=== PATIENT | female | born 1950 | race African-American/Black ===

== ENCOUNTER 2017-02-20 06:15 | Day surgery (SDC) | payer OTHER ==
--- NOTE | 2017-02-18 12:50 | HP ---
Past Medical History - Admission Chief Complaint: Thickened endometrium History of Present Illness: 66 year old who had a MRI ordered by Dr. Barahona, Oncology on 10/31/2016 revealing abnormality of the kidney and chest and a uterus with an endometrium measuring 1.4 cm in thickness. A transvaginal ultrasound was performed on revealing a anteverted uterus 7 by 5 by 4 cm with endometrium of 12 mm with differential including cystic endometrial hyperplasia and endometrial carcinoma could not be ruled out. Patient had been on Tamoxifen from 1996 to 2002. She denies postmenopausal bleeding. Negative pap smear and HPV 10/23/2016. History Source: Patient Limitations to Obtaining History: No Limitations - Past Medical History ...: 3 ...Para: 3 - Past Surgical History Past Surgical History: Yes: Breast Biopsy, Mastectomy (Right mastectomy 1996) Hx Myomectomy: No Hx Transabdominal Cerclage: No - Smoking History Smoking history: Never smoked - Alcohol/Substance Use Hx Alcohol Use: No - Social History Usual Living Arrangement: Yes: With Spouse Occupation: Registered nurse Home Medications - Allergies Allergies/Adverse Reactions: Allergies Allergy/AdvReac Type Severity Reaction Status Date / Time Latex, Natural Rubber Allergy Mild Verified 02/18/17 12:54 streptomycin Allergy Unknown Verified 02/18/17 12:54 Family Disease History - Family Disease History Family Disease History: Heart Disease: Father (HPT), Mother (HPT) Review of Systems - Review of Systems Constitutional: reports: No Symptoms Neck: reports: No Symptoms Cardiovascular: reports: No Symptoms Respiratory: reports: No Symptoms Gastrointestinal: reports: No Symptoms Genitourinary: reports: No Symptoms Neurological: reports: Headache (Occasional) Hematology/Lymphatic: reports: No Symptoms Psychiatric: reports: No Symptoms Physical Exam-RN SCHOOL Constitutional: Yes: Well Nourished, No Distress, Calm HENT: Yes: WNL Neck: Yes: WNL, Supple, Trachea Midline Cardiovascular: Yes: WNL, Regular Rate and Rhythm Respiratory: Yes: WNL, Regular, CTA Bilaterally Gastrointestinal: Yes: WNL, Soft (non tender, no masses) Pelvis: Yes: WNL Internal Exam Deferred: Yes Vaginal Exam: Yes: Normal Cervix: Yes: Normal Uterus: Yes: Normal, Freely Moveable, Anteverted Adnexa: Normal: Bilateral Extremities: Yes: WNL Edema: No ...Motor Strength: WNL Imaging - Results Ultrasound: Report Reviewed (Thickened endometrium) MRI: Report Reviewed Assessment/Plan Menopause History of Breast cancer Thickened endometrium Plan: D and C with Hysteroscopy under anesthesia.
[2017-02-19 08:44] VITALS: BMI 33.7
[2017-02-20] MEDS ORDERED: BUPIVACAINE HCL/PF 0.5% (5MG/ML) 10 ML VIAL ONE (07:06)
[2017-02-20] MEDS ORDERED: LIDOCAINE 1%/EPI 1:100000 (20 ML MULTI DOSE VIAL) ONE (07:06)
[2017-02-20] MEDS ORDERED: MIDAZOLAM HCL 2 MG/2 ML SINGLE DOSE VIAL ONE (07:36)
[2017-02-20] MEDS ORDERED: SUCCINYLCHOLINE CHLORIDE 200 MG/10 ML VIAL ONE (08:11)
[2017-02-20] MEDS ORDERED: PROPOFOL 20 ML ONE (08:11)
[2017-02-20] MEDS ORDERED: LACTATED RINGERS SOLUTION 1,000 ML IV SCH (09:00)
[2017-02-20] MEDS ORDERED: oxyCODONE HCL 5 MG TABLET PO PRN (09:00)
[2017-02-20] MEDS ORDERED: PROMETHAZINE HCL 25 MG/1 ML VIAL IVPUSH PRN (09:00)
[2017-02-20] MEDS ORDERED: ONDANSETRON 4 MG/2 ML VIAL IVPUSH PRN (09:00)
[2017-02-20] MEDS ORDERED: ACETAMINOPHEN 325 MG TABLET (FP) PO PRN (09:08)
[2017-02-20] MEDS ORDERED: IBUPROFEN 400 MG TABLET (FP) PO PRN (09:08)
--- NOTE | 2017-02-20 09:24 | HP ---
History & Physical Update - History History: No Change - Physical Physical: No Change - Assessment Assessment: No Change - Plan Plan: No Change
--- NOTE | 2017-02-20 10:16 | OP ---
DATE OF OPERATION: 02/20/2017 PREOPERATIVE DIAGNOSIS: Thickened endometrium, menopause, history of breast cancer. OPERATION: Dilatation and curettage, hysteroscopy. SURGEON: Jayce Schaefer MD ANESTHESIA: General. ANESTHESIOLOGIST: Iker Fuentes MD BLOOD LOSS: 10 mL. FLUIDS: 200 mL. SPECIMEN: Endometrial curettings. PROCEDURE: Under general anesthesia, the patient was placed in the dorsal lithotomy position, prepped and draped in the usual sterile manner. A pelvic examination was performed revealing a uterus that was anterior, mobile, normal in size and shape. Adnexa was not palpated, unable to palpate it. A weighted speculum was inserted in the vagina. The anterior lip of the cervix was grasped with a sharp-tooth tenaculum. The uterus was sounded to approximately 6 cm. With Hegar dilator, the cervical os was gradually dilated to allow entrance of a 5-mm scope with saline as a distending medium. The uterine cavity was visualized in its entirety. The cavity appeared smooth, symmetrical with normal ostia. No evidence of any polyps, lesions, or thickening. With these findings noted, the scope was then removed. The cervix was then further dilated. The uterine cavity was then curetted, and endometrial tissue was obtained. Patient tolerated the procedure well. Tenaculum was removed. No bleeding was noted. The patient was then brought to the recovery room in satisfactory condition. JAYCE SCHAEFER M.D. [id number] MTDD
[2017-02-20 10:21] VITALS: TEMP 97.7
[2017-02-20 14:29] VITALS: BP 127/67; PULSE 83
--- NOTE | 2017-02-23 09:45 | PATH ---
Surgical Pathology Report Patient Name: REUBEN AMANDA [facility]. Rec. #: [id number] /Age/Gender: 1950 (Age: 66) / F Account: [id number] Location: [facility] SURGICAL Taken: 02/20/2017 Received: 02/20/2017 Reported: 02/23/2017 Physicians: Jayce Burns M.D. Specimen(s) Received ENDOMETRIAL CURETTINGS Clinical History It Thickened endometrium on imaging, history of breast cancer, no bleeding Final Diagnosis ENDOMETRIAL CURETTINGS, DILATATION AND CURETTAGE: ATROPHIC ENDOMETRIUM, SCANT SUPERFICIAL MYOMETRIUM, AND BENIGN CERVICAL TISSUE. Electronically Signed Nyla Small M.D. Gross Description Received in formalin labeled "endometrial curettings," is a 2.3 x 1.8 x 0.3 cm aggregate of red-brown soft tissue fragments. The formalin is filtered and the specimen is entirely submitted in one cassette. /02/20/201702/20/2017
== END 2017-02-20 12:05 | disposition home or self-care (01) ==
LOC: JASU-SURG 06:15
PROVIDERS: ATTEND Obstetrics & Gynecology
PROC: 0UDB8ZX Extraction of Endometrium, Via Natural or Artificial Opening Endoscopic, Diagnostic (ICD-10-PCS; principal; 2017-02-20 08:00)
DX: N85.8 Other specified noninflammatory disorders of uterus (principal); Z78.0 Asymptomatic menopausal state; Z85.3 Personal history of malignant neoplasm of breast
CPT/HCPCS: 88305-TC; 94760